=== PATIENT | female | born 1955 | race Caucasian/White ===

== ENCOUNTER 2016-06-30 11:11 | Emergency (ER) | payer MEDICAID ==
[~2016-06-30] VITALS: Ht 170.2 cm; Wt 87.5 kg
[~2016-06-30 11:11] MED LIST: BUPR-86 PO; METF1000 PO; QUIN5TAB PO; RANI150T8 PO; SITA25TA PO
[2016-06-30 12:38] VITALS: BP 131/61
== END 2016-06-30 12:41 | disposition home or self-care (01) ==
LOC: ED 12:35
DX: S30.0XXA Contusion of lower back and pelvis, initial encounter (principal); M19.90 Unspecified osteoarthritis, unspecified site; E11.9 Type 2 diabetes mellitus without complications; W18.39XA Other fall on same level, initial encounter; Y93.89 Activity, other specified; Y92.410 Unspecified street and highway as the place of occurrence of the external cause; Y99.8 Other external cause status
CPT/HCPCS: 72110